=== PATIENT | female | born 1955 | race Caucasian/White ===

== ENCOUNTER → 2017-02-24 | Outpatient (CLI) | payer OTHER | LOC: FIMAGING 09:21 | PROVIDERS: ATTEND Family Medicine | DX: Z12.31 Encounter for screening mammogram for malignant neoplasm of breast (principal) | CPT/HCPCS: G0202 ==

== ENCOUNTER → 2017-03-29 | Outpatient (CLI) | payer OTHER | LOC: FIMAGING 08:12 | PROVIDERS: ATTEND Surgery | DX: K21.9 Gastro-esophageal reflux disease without esophagitis (principal); K44.9 Diaphragmatic hernia without obstruction or gangrene ==

== ENCOUNTER → 2018-06-14 | Outpatient (CLI) | payer OTHER | LOC: FIMAGING 15:01 | PROVIDERS: ATTEND Family Medicine | DX: Z12.31 Encounter for screening mammogram for malignant neoplasm of breast (principal); Z80.3 Family history of malignant neoplasm of breast ==

== ENCOUNTER 2019-01-22 17:43 | Emergency (ER) | payer OTHER ==
[2019-01-22] MEDS ORDERED: NS 500 ML IV ONE (18:05)
[2019-01-22] MEDS ORDERED: fentaNYL 100 MCG/2 ML INJ IVP ONE (18:05)
[2019-01-22] MEDS ORDERED: ONDANSETRON 4 MG/2 ML VIAL IVP ONE (18:05)
--- NOTE | 2019-01-22 18:11 | EDPHY ---
H & P Time Seen by Provider: 01/22/19 17:55 HPI/ROS: CHIEF COMPLAINT: Headache, chest pain HISTORY OF PRESENT ILLNESS: The patient is a 63-year-old female presents emergency department with severe headache and chest pain. Patient states that she had a history of migraines in the past but has not had a migraine for over 10 years. Last night at approximately 1:00 a.m. She was masturbating when she developed a severe frontal headache. It felt similar to previous migraines. She had nausea but no vomiting. She subsequently developed anterior chest pain. This extended across her chest on both the right and left side. It was sharp and stabbing. She described it as a 10/10. The patient states that she took a Xanax and was able to breathe herself to sleep. She subsequently woke up and continued to have discomfort. She was able to fall back asleep. When she woke at 2:00 p.m. Today she felt entirely better. All of her symptoms had resolved. She went on a walk. Unfortunately she twisted her right ankle and fell forward striking her head on the fender of a car. She again complained of severe headache. Her chest pain returned. She has no shortness of breath. No leg pain or swelling. No fevers or chills. No recent travel. Patient has had a recent cold and her symptoms have been improving. She still has a slight cough. The patient states that she had a syncopal episode a few weeks ago. At that time she had a negative head CT. She was diagnosed with a distal radius fracture. This is currently splinted and she has follow-up with Orthopedics. She now has increasing left wrist pain after her fall. Her pain is moderate. REVIEW OF SYSTEMS: 10 systems were reveiwed and are negative with the exception of the elements mentioned in the history of present illness. Past Medical/Surgical History: Includes remote history of migraines, hypothyroidism, depression, GERD Past surgical history: Includes tonsillectomy, appendectomy Social history: Patient denies drugs or alcohol. She does not smoke. Smoking Status: Never smoked Constitutional: Initial Vital Signs Temperature (C) 36.4 C 01/22/19 17:48 Heart Rate 84 01/22/19 17:48 Respiratory Rate 16 01/22/19 17:48 Blood Pressure 170/84 H 01/22/19 17:48 O2 Sat (%) 99 01/22/19 17:48 O2 Delivery Mode Room Air Allergies/Adverse Reactions: No Known Allergies Allergy (Unverified 04/04/12 19:31) Home Medications: Medication Instructions Recorded CHOLECALCIFEROL [Vitamin D] 400 unit PO 04/04/12 Levothyroxine [Synthroid 50 mcg 50 mcg PO DAILY06 04/04/12 (RX)] Rarden-3 Fatty Acids/Fish Oil 1 each PO 04/04/12 [Rarden 3 1,000 mg Softgel] Sumatriptan Succinate [Imitrex] 0 mg PO 04/04/12 Vitamin B Complex [Vitamin B 1 each PO DAILY 04/04/12 Complex (OTC)] clomiPRAMINE [Anafranil (RX)] 50 mg PO 04/04/12 Ondansetron Odt [Zofran Odt 4 mg 4 mg PO Q4PRN PRN #7 tab 01/22/19 (*)] oxyCODONE/APAP 5/325 [Percocet 1 - 2 tab PO Q4PRN PRN #11 tab 01/22/19 5/325 (*)] Medical Decision Making - Diagnostics Imaging Results: Imaging Impressions Head CT 01/22/19 18:06 Impression: 1. No acute intracranial hemorrhage. 2. Acute sinusitis. Althea Best was notified of these findings at 6:42 PM on 01/22/2019. Ankle X-Ray 01/22/19 18:07 Impression: No evidence of acute, displaced fracture Chest X-Ray 01/22/19 18:07 Impression: No acute findings in the chest. Wrist X-Ray 01/22/19 18:07 Impression: Distal radial fracture as described ED Course/Re-evaluation: In the emergency department I discussed possible etiologies with the patient. I answered all her questions. IV was placed. Laboratory studies, head CT, chest x-ray, EKG, right ankle x-ray and left wrist x-rays were ordered. The patient was given fentanyl 50 mcg IV for pain. She is given Zofran 4 mg IV for nausea. EKG shows normal sinus rhythm, normal rate, normal axis, prolonged NM interval. There are no ST or T-wave abnormalities. CBC is normal. Troponin is 0.03. Chemistry panel is unremarkable. Head CT: No acute disease noted Patient requested Ativan and Toradol. These were given and additionally Decadron was given. 1939: I went rechecked the patient she was ambulating to the bathroom. She states she was feeling better. She had no focal deficits. 2014: I rechecked the patient. She was feeling much better. Her headache is resolved. She has no chest pain. Repeat EKG and troponin were ordered. Chest x-ray: No acute disease noted. Left wrist shows a distal radius fracture. This is consistent with her old injury. Right ankle negative. Repeat EKG: EKG shows normal sinus rhythm, normal rate, normal axis, normal intervals. There are no ST or T-wave abnormalities. EKG is normal as interpreted by me. Repeat troponin is negative Patient felt comfortable being discharged. She had no focal deficits. She is given warnings prior to leaving. She will return with worsening symptoms. Differential Diagnosis: My differential includes but is not limited to dissection, aneurysm, subarachnoid hemorrhage, epidural hematoma, concussion, contusion, wrist fracture, wrist dislocation, ankle fracture, ankle dislocation - Data Points Laboratory Results: Laboratory Results 01/22/19 18:24 01/22/19 18:24 01/22/19 01/22/19 01/22/19 20:24 18:31 18:24 WBC RBC Hgb Hct MCV MCH MCHC RDW Plt Count MPV Neut % (Auto) Lymph % (Auto) [place] % (Auto) Eos % (Auto) Baso % (Auto) Nucleat RBC Rel Count Absolute Neuts (auto) Absolute Lymphs (auto) Absolute Monos (auto) Absolute Eos (auto) Absolute Basos (auto) Absolute Nucleated RBC Immature Gran % Immature Gran # PT 11.8 SEC L SEC (12.0-15.0) INR 0.90 (0.83-1.16) APTT 25.5 SEC SEC (23.0-38.0) Sodium Potassium Chloride Carbon Dioxide Anion Gap BUN Creatinine Estimated GFR Glucose Calcium POC Troponin I 0.03 ng/mL ng/mL 0.03 ng/mL ng/mL (0.00-0.08) (0.00-0.08) 01/22/19 01/22/19 18:24 18:24 WBC 6.42 10^3/uL 10^3/uL (3.80-9.50) RBC 4.55 10^6/uL 10^6/uL (4.18-5.33) Hgb 14.1 g/dL g/dL (12.6-16.3) Hct 40.8 % % (38.0-47.0) MCV 89.7 fL fL (81.5-99.8) MCH 31.0 pg pg (27.9-34.1) MCHC 34.6 g/dL g/dL (32.4-36.7) RDW 11.9 % % (11.5-15.2) Plt Count 292 10^3/uL 10^3/uL (150-400) MPV 9.4 fL fL (8.7-11.7) Neut % (Auto) 63.0 % % (39.3-74.2) Lymph % (Auto) 25.4 % % (15.0-45.0) [place] % (Auto) 10.1 % % (4.5-13.0) Eos % (Auto) 0.8 % % (0.6-7.6) Baso % (Auto) 0.5 % % (0.3-1.7) Nucleat RBC Rel Count 0.0 % % (0.0-0.2) Absolute Neuts (auto) 4.05 10^3/uL 10^3/uL (1.70-6.50) Absolute Lymphs (auto) 1.63 10^3/uL 10^3/uL (1.00-3.00) Absolute Monos (auto) 0.65 10^3/uL 10^3/uL (0.30-0.80) Absolute Eos (auto) 0.05 10^3/uL 10^3/uL (0.03-0.40) Absolute Basos (auto) 0.03 10^3/uL 10^3/uL (0.02-0.10) Absolute Nucleated RBC 0.00 10^3/uL 10^3/uL (0-0.01) Immature Gran % 0.2 % % (0.0-1.1) Immature Gran # 0.01 10^3/uL 10^3/uL (0.00-0.10) PT INR APTT Sodium 138 mEq/L mEq/L (135-145) Potassium 3.9 mEq/L mEq/L (3.5-5.2) Chloride 103 mEq/L mEq/L (97-110) Carbon Dioxide 23 mEq/l mEq/l (22-31) Anion Gap 12 mEq/L mEq/L (6-14) BUN 15 mg/dL mg/dL (7-23) Creatinine 0.8 mg/dL mg/dL (0.6-1.0) Estimated GFR > 60 Glucose 91 mg/dL mg/dL (70-100) Calcium 9.6 mg/dL mg/dL (8.5-10.4) POC Troponin I Medications Given: Discontinued Medications Dexamethasone (Decadron Injection) 10 mg IVP EDNOW ONE Stop: 01/22/19 19:10 Last Admin: 01/22/19 19:16 Dose: 10 mg Fentanyl (Sublimaze) 50 mcg IVP EDNOW ONE Stop: 01/22/19 18:06 Last Admin: 01/22/19 18:25 Dose: 50 mcg Sodium Chloride (Ns) 500 mls @ 0 mls/hr IV ONCE ONE; Wide Open PRN Reason: Protocol Stop: 01/22/19 18:06 Last Admin: 01/22/19 18:25 Dose: 500 mls Ketorolac Tromethamine (Toradol) 30 mg IVP EDNOW ONE Stop: 01/22/19 19:10 Last Admin: 01/22/19 19:19 Dose: 30 mg Lorazepam (Ativan Injection) 1 mg IVP EDNOW ONE Stop: 01/22/19 19:10 Last Admin: 01/22/19 19:15 Dose: 1 mg Ondansetron HCl (Zofran) 4 mg IVP EDNOW ONE Stop: 01/22/19 18:06 Last Admin: 01/22/19 18:25 Dose: 4 mg Ondansetron HCl (Zofran Odt 4 Mg Prepack#2) 1 btl TAKEHOME EDNOW ONE Stop: 01/22/19 20:36 Last Admin: 01/22/19 20:47 Dose: 1 btl Oxycodone/Acetaminophen (Percocet 5/325mg Prepack#4) 1 btl TAKEHOME EDNOW ONE Stop: 01/22/19 20:36 Last Admin: 01/22/19 20:46 Dose: 1 btl Point of Care Test Results: Chemistry 01/22/19 01/22/19 20:24 18:31 POC Troponin I 0.03 ng/mL ng/mL 0.03 ng/mL ng/mL (0.00-0.08) (0.00-0.08) Departure - Departure Disposition: Home, Routine, Self-Care Clinical Impression: Headache Qualifiers: Headache type: unspecified Headache chronicity pattern: acute headache Intractability: not intractable Qualified Code(s): R51 - Headache Head injury Qualifiers: Encounter type: initial encounter Qualified Code(s): S09.90XA - Unspecified injury of head, initial encounter Chest pain Qualifiers: Chest pain type: unspecified Qualified Code(s): R07.9 - Chest pain, unspecified Condition: Good Instructions: Oxycodone/Acetaminophen (By mouth), Ondansetron (By mouth), Chest Pain (ED), Head Injury (ED), Acute Headache (ED) Additional Instructions: Return with increasing chest pain, shortness of breath, worsening headache or any other concerns. Referrals: Serina Person [Primary Care Provider] - 2-3 days, if not improved Prescriptions: Ondansetron Odt [Zofran Odt 4 mg (*)] 4 mg PO Q4PRN PRN #7 tab PRN Reason: For Nausea & Vomiting oxyCODONE/APAP 5/325 [Percocet 5/325 (*)] 1 - 2 tab PO Q4PRN PRN #11 tab PRN Reason: For Moderate To Severe Pain
[2019-01-22 18:41] LABS: PLATELET COUNT 292 10^3/uL (150-400)
[2019-01-22 18:50] LABS: INR 0.9 (0.83-1.16); PROTIME(PATIENT) 11.8 SEC (12.0-15.0)
[2019-01-22] MEDS ORDERED: DEXAMETHASONE 10 MG/ML VIAL IVP ONE (19:09)
[2019-01-22] MEDS ORDERED: KETOROLAC 30 MG/1 ML SDV IVP ONE (19:09)
[2019-01-22] MEDS ORDERED: LORazepam 2 MG/ML INJ IVP ONE (19:09)
[2019-01-22 20:34] VITALS: BP 142/69
[2019-01-22] MEDS ORDERED: OXYCODONE/APAP 5/325MG PREPACK#4 BTL TAKEHOME ONE (20:35)
[2019-01-22] MEDS ORDERED: ONDANSETRON 4MG PREPACK#2 BTL TAKEHOME ONE (20:35)
--- NOTE | 2019-01-22 23:12 | CPEKG ---
Test Reason : OPEN Blood Pressure : / mmHG Vent. Rate : 079 BPM Atrial Rate : 080 BPM P-R Int : 285 ms QRS Dur : 070 ms QT Int : 415 ms P-R-T Axes : 001 063 069 degrees QTc Int : 476 ms Sinus rhythm Prolonged PA interval Confirmed by Althea Best ([id number]) on 01/22/2019 11:12:26 PM Referred By: Althea Best Confirmed By:Althea Best
--- NOTE | 2019-01-22 23:13 | CPEKG ---
Test Reason : OPEN Blood Pressure : / mmHG Vent. Rate : 083 BPM Atrial Rate : 083 BPM P-R Int : 167 ms QRS Dur : 072 ms QT Int : 376 ms P-R-T Axes : 072 014 024 degrees QTc Int : 442 ms Sinus rhythm Borderline T abnormalities, inferior leads Confirmed by Edu Best ([id number]) on 01/22/2019 11:12:26 PM Referred By: EDU BEST Confirmed By:Edu Best
== END 2019-01-22 20:59 | disposition home or self-care (01) ==
DX: R51 Headache (principal); R07.9 Chest pain, unspecified
CPT/HCPCS: 84484-ER; 96374; J1100; J1885; J2060; J2405; J3010